=== PATIENT | male | born 1995 | race Caucasian/White ===

== ENCOUNTER 2017-06-29 23:28 | Emergency (ER) | payer OTHER ==
[~2017-06-29] VITALS: Ht 182.9 cm; Wt 78.5 kg
[2017-06-29 23:35] VITALS: BP 152/104
--- NOTE | 2017-06-29 23:49 | NUR ---
PATIENT [facility]IB [facility] BED 3
--- NOTE | 2017-06-29 23:50 | NUR ---
22/M BIB [facility]. PER [facility], PT'S MOTHER CALLED FROM HOME BECAUSE PT HAD USED METH AND WAS EXPERIENCING HALLUCINATIONS. PT DENIES HAVING HALLUCINATIONS OR SI/HI. PT REPORTS HAVING A HEADACHE, PT TOOK TYLENOL WITH NO RELIEF. PT REPORTS USING METH AT 1300. AOX4, AMBULATORY, IRRITABLE. PT DENIES HX, RX. NKA.
[2017-06-30 01:32] VITALS: BP 140/100
--- NOTE | 2017-06-30 01:32 | NUR ---
Patient discharged with v/s stable. Written and verbal after care instructions given and explained. Patient alert, oriented and verbalized understanding of instructions. Ambulatory with steady gait. All questions addressed prior to discharge. ID band removed. Patient advised to follow up with PMD. INSTRUCTED TO TAKE OTC TYLENOL 500MG PRN PER MD. Patient educated on indication of medication including possible reaction and side effects. Opportunity to ask questions provided and answered.
== END 2017-06-30 01:32 | disposition home or self-care (01) ==
LOC: MED 23:28
DX: F14.10 Cocaine abuse, uncomplicated (principal); R44.1 Visual hallucinations; R51 Headache; F17.210 Nicotine dependence, cigarettes, uncomplicated
CPT/HCPCS: 99283

== ENCOUNTER 2017-07-10 22:13 | Emergency (ER) | payer OTHER ==
[~2017-07-10] VITALS: Ht 182.9 cm; Wt 76.2 kg
[2017-07-10 22:15] VITALS: BP 139/92
== END 2017-07-11 00:41 | disposition left against medical advice (07) ==
LOC: MED 22:13
DX: R51 Headache (principal); Z53.21 Procedure and treatment not carried out due to patient leaving prior to being seen by health care provider

== ENCOUNTER 2017-09-23 21:56 | Inpatient (IN) | payer OTHER ==
[~2017-09-23] VITALS: Ht 182.9 cm; Wt 79.8 kg
[2017-09-23 22:00] VITALS: BP 109/90
[2017-09-23] MEDS ORDERED: ASEN5TAB6 SL (22:06)
--- NOTE | 2017-09-23 22:10 | NUR ---
PT CAME IN TO WITH C/O SUICIDE IDEATION. PT STATED THAT HE HEARS VOICES AND BLACKED OUT. HE FOUND HIMSELF RUNNING INTO TRAFFIC. PT HAS A HX OF SCHIZOPHRENIA, DEPRESSION, ANIETY AND BIPOLAR. KNA. SKIN IS PINK/WARM/DRY; AAOX4 WITH EVEN AND STEADY GAIT; PATIENT STATES PAIN OF 0/10 AT THIS TIME; VSS; PATIENT POSITIONED FOR COMFORT; HOB ELEVATED; BEDRAILS UP X2; BED DOWN. ER MADE AWARE OF PT STATUS. Addendum: 09/24/17 at 0049 by [email or web address] PT CAME IN TO WITH C/O SUICIDE IDEATION. PT STATED THAT HE HEARS VOICES AND BLACKED OUT. HE FOUND HIMSELF RUNNING INTO TRAFFIC. PT HAS A HX OF SCHIZOPHRENIA, DEPRESSION, ANIETY AND BIPOLAR. KNA. SKIN IS PINK/WARM/DRY; AAOX4 WITH EVEN AND STEADY GAIT; PATIENT STATES PAIN OF 0/10 AT THIS TIME; VSS; PATIENT POSITIONED FOR COMFORT; HOB ELEVATED; BEDRAILS UP X2; BED DOWN. ER MADE AWARE OF PT STATUS.
--- NOTE | 2017-09-23 22:10 | NUR ---
seizure precautions implemented, pt tolerated well.
--- NOTE | 2017-09-23 22:10 | NUR ---
Pt ambulated to bed 3 with vss. States intent to harm self by walking into traffic. Suicidal precautions in place.
[2017-09-23 22:33] LABS: BASOPHILS % (AUTO) 0.7 % (0.0-2.0); EOSINOPHILS # (AUTO) 0.2 K/uL (0-0.4); EOSINOPHILS % (AUTO) 3.5 % (0.0-4.0); HEMATOCRIT 42.7 % (36-52); HEMOGLOBIN 13.9 g/dL (12.0-18.0); LYMPHOCYTES % (AUTO) 39.2 % (20.5-51.1); MEAN CORPUSCULAR HEMOGLOBIN 27 pg (27-31); MEAN CORPUSCULAR HGB CONC 33 g/dL (33-37); MEAN CORPUSCULAR VOLUME 81.5 fL (80-94); MONOCYTES # (AUTO) 0.2 K/uL (0.8-1.0); MONOCYTES % (AUTO) 4.2 % (1.7-9.3); NEUTROPHILS # (AUTO) 2.7 K/uL (1.8-7.7); NEUTROPHILS % (AUTO) 52.4 % (42.2-75.2); PLATELET COUNT (AUTO) 275 K/uL (140-450); RED BLOOD CELL COUNT(AUTO) 5.24 MIL/uL (4.20-6.10); RED CELL DISTRIBUTION WIDTH 15.2 % (11.6-13.7); WHITE BLOOD COUNT (AUTO) 5.2 K/uL (4.8-10.8)
[2017-09-23 23:13] LABS: ANION GAP 11.9 (8-16); CARBON DIOXIDE 29.7 mmol/L (21-32); CHLORIDE 102 mmol/L (98-107); CREATININE 1.1 mg/dL (0.7-1.3); GFR ARICAN-AMERICAN 106 mL/min (>90); GLUCOSE 120 mg/dL (74-106); POTASSIUM 3.6 mmol/L (3.5-5.1); SODIUM SERUM 140 mmol/L (136-145); UREA NITROGEN, BLOOD 15 mg/dL (7-18)
[2017-09-23 23:23] LABS: ACETAMINOPHEN < 0.5 ug/ml (10-30); ALBUMIN 4.4 g/dL (3.4-5.0); ASPARTATE AMINOTRANSFERASE 45 U/L (15-37); SALICYLATE < 2.8 mg/dL (2.8-20.0); TOTAL BILIRUBIN 0.4 mg/dL (0.0-1.0)
[2017-09-23 23:33] LABS: APPEARANCE,URINE CLEAR (CLEAR); BILIRUBIN,URINE NEGATIVE (NEGATIVE); BLOOD, URINE NEGATIVE (NEGATIVE); COLOR,URINE YELLOW (YELLOW); LEUKOCYTE ESTERASE ,URINE 1+ (NEGATIVE); NITRITE, URINE NEGATIVE (NEGATIVE); UGLUCOSE NEGATIVE (NEGATIVE)
[2017-09-23 23:43] LABS: BARBITURATE, URINE NEG. ng/ml (NEG <=200); BENZODIAZEPINE, URINE NEG. ng/mL (NEG <=200); CANNABINOID, URINE NEG. ng/mL (NEG <=50); COCAINE, URINE NEG. ng/mL (NEG <=300); OPIATE, URINE NEG. ng/mL (NEG <=2000); PHENCYCLIDINE SCREEN,URINE NEG. ng/mL (NEG <=25)
[2017-09-23 23:44] LABS: RBC,URINE 0-5 (RARE) /HPF (0-5); WBC,URINE 16-25 (MOD) /HPF (0-5)
[2017-09-23] MEDS ORDERED: cefTRIAXone 1,000 MG in LIDOCAINE MPF 1% - 5 mL VIAL 2.1 ML IM ONE (23:45)
--- NOTE | 2017-09-24 00:05 | NUR ---
JOY SALDAÑA CALLED AT THIS TIME REQUESTING EVALUATION FOR 7470 HOLD
--- NOTE | 2017-09-24 00:05 | NUR ---
PT STATED THAT HE DOES NOT WANT TO HURT HIMSELF RIGHT NOW. HE STATED THAT HE HAS TRIED TO HURT HIMSELF IN THE PAST BY CUTTING HIMSELF/FOREARM, AND TAKING TOO MANY PILLS TRYING TO OD ON THEM. PT STATED HE DOES DRINK ALCOHOL, SMAKE AND MARAJAUNA. PT ALSO STATED THAT HE HAS BEEN OFF HIS MEDS FOR 3 DAYS AND HE NORMALLY HEARS VOICES. PT VITALS STABLE AND IS RESTING IN BED.
--- NOTE | 2017-09-24 00:53 | NUR ---
PT IS RESTING IN BED. JUICE WAS GIVEN TO HIM BY REQUEST. VITALS STABLE
--- NOTE | 2017-09-24 01:14 | NUR ---
pt sleeping vitals stable.
--- NOTE | 2017-09-24 02:18 | NUR ---
[place] [employer] at bedside
--- NOTE | 2017-09-24 02:18 | NUR ---
PER [place] PD. PUT PT ON A 5150 HOLD. 5150 HOLD HAS BEEN INITIATED.
--- NOTE | 2017-09-24 02:37 | NUR ---
PT IS SLEEPING IN BED, VITALS STABLE
--- NOTE | 2017-09-24 03:03 | NUR ---
SPOKE TO CARL FROM [facility] FOR PLACEMENT. FAXED PT CHART TO BEING PLACEMENT PROCESS AT THIS TIME
--- NOTE | 2017-09-24 03:34 | NUR ---
PT IS SLEEPING IN BED. VITALS STABLE
--- NOTE | 2017-09-24 04:35 | NUR ---
PT IS RESTING IN BED, VITALS STABLE
--- NOTE | 2017-09-24 04:59 | NUR ---
SPOKE W/ VETERINARY TECHNICIAN INSTRUCTOR, GENA, INFORMED HIM THAT WE DID NOT HAVE A SITTER OR AN EMT. I WAS INFORMED THAT A SITTER WAS NOT AVAILABLE IN THE HOSPITAL.
--- NOTE | 2017-09-24 05:16 | NUR ---
SPOKE TO CARL FROM [facility]; NO PLACEMENT AVAILABLE AT THIS TIME. MADE AWARE
--- NOTE | 2017-09-24 05:18 | NUR ---
DR BOO REQUESTING THAT THE PT BE ADMITTED TO THE HOSPITAL AT THIS TIME. PER LETA FROM ADMITTING, PT TO BE ADMITTED TO [facility] SE[facility] PROPERTY MANAGER.
--- NOTE | 2017-09-24 05:31 | NUR ---
SPOKE TO ROSALIA FROM [facility], WAITING FOR CALL BACK FROM BUSINESS REPORTING DEVELOPER
--- NOTE | 2017-09-24 05:35 | NUR ---
pt sleeping in bed. vitals stable.
--- NOTE | 2017-09-24 05:38 | NUR ---
CALL BACK FROM [facility], PT TO BE ADMITTED UNDER DR HAM
--- NOTE | 2017-09-24 06:35 | NUR ---
pt sleeping in bed, vitals stable
--- NOTE | 2017-09-24 06:50 | NUR ---
Pt report given to [facility]. Transfer of care at this time. pt vitals stable.
--- NOTE | 2017-09-24 06:58 | NUR ---
[facility] aware pateint to be admitted. will continue to look for placement, will endorse to morning shift. no updates from contacted facilties at this time.
[2017-09-24 07:00] VITALS: BP 118/68
--- NOTE | 2017-09-24 07:00 | NUR ---
Admited to med surg. Will go to room 121 A. Belongings list completed. Report to THOMAS PEÑA.
--- NOTE | 2017-09-24 07:00 | NUR ---
RECEIVED PT FROM ER VIA WHEELCHAIR DX SUICIDAL IDEATION 5150 PT AAOX2 AMBULATORY NOT IV ACCESS PT IS ORIENTED TO THE FLOOR , SITTER AT BED SIDE PT SEEM CALM GETTING TO SLEEP , VITALS SIGNS TAKEN TEMP 97.8 PULSE 65 RESP 17 BP 118/68 02 SAT 97% , MRSA NARES PROTOCOL TAKEN . PT IS ENDORSED TO WILMAN PEÑA CON CONTINUITY OF CARE
--- NOTE | 2017-09-24 07:00 | NUR ---
RECEIVED REPORT FROM NIGHTSHIFT NURSE AT BEDSIDE. PATIENT HAS 1:1 SITTER. PATIENT IS DROWSY AT THIS TIME BUT IS ALERT AND ORIENTED X4. NO DISTRESS NOTED. NO PAIN NOTED. PATIENT IS LAYING IN LEFT LATERAL POSITION. NO IV ACCESS NOTED. ID BANDS ON PATIENT. UPDATED BOARD IN PATIENT'S ROOM. WILL CONTINUE TO MONITOR PATIENT.
--- NOTE | 2017-09-24 10:28 | NUR ---
PATIENT HAS BEEN SCREENED AND CATEGORIZED LOW NUTRITION RISK. PATIENT WILL BE SEEN WITHIN 7 DAYS OF ADMISSION. 09/30/[address]
--- NOTE | 2017-09-24 10:31 | NUR ---
PATIENT RESTING AT THIS TIME IN RIGHT LATERAL POSITION. PATIENT HAS 1:1 SITTER. WILL CONTINUE TO MONITOR PATIENT.
--- NOTE | 2017-09-24 11:02 | NUR ---
Packet has been faxed to Emily at [facility] for placement. Packet has been faxed to Parvin at [facility] for placement.
--- NOTE | 2017-09-24 11:22 | NUR ---
PATIENT RESTING AT THIS TIME. NO DISTRESS NOTED. WILL CONTINUE TO MONITOR PATIENT.
--- NOTE | 2017-09-24 13:20 | NUR ---
PATIENT ASLEEP AT THIS TIME. 1:1 SITTER AT BEDSIDE. WILL CONTINUE TO MONITOR PATIENT.
--- NOTE | 2017-09-24 15:50 | NUR ---
PATIENT IS ASLEEP AT THIS TIME. NO DISTRESS NOTED.
[2017-09-24 16:00] VITALS: BP 129/76
--- NOTE | 2017-09-24 16:05 | NUR ---
clinical review faxed to [facility] at [phone]
[2017-09-24] MEDS: ACETAMINOPHEN 325 MG TAB PO PRN (17:48)
[2017-09-24 17:55] LABS: APPEARANCE,URINE CLEAR (CLEAR); BILIRUBIN,URINE NEGATIVE (NEGATIVE); BLOOD, URINE NEGATIVE (NEGATIVE); COLOR,URINE YELLOW (YELLOW); LEUKOCYTE ESTERASE ,URINE NEGATIVE (NEGATIVE); NITRITE, URINE NEGATIVE (NEGATIVE); UGLUCOSE NEGATIVE (NEGATIVE)
--- NOTE | 2017-09-24 18:59 | NUR ---
PATIENT RESTING IN BED. NO DISTRESS NOTED. WILL CONTINUE TO MONITOR PATIENT.
--- NOTE | 2017-09-24 19:04 | NUR ---
GAVE REPORT TO NIGHTSHIFT NURSE AT BEDSIDE. PATIENT HAS 1:1 SITTER. PATIENT IN STABLE CONDITION.
--- NOTE | 2017-09-24 19:10 | NUR ---
RECEIVED PATIENT ASLEEP ON BED WITH SITTER IN CONSTANT CLOSE OBSERVATION FOR SAFETY. SUICIDAL PRECAUTION IMPLEMENTED. BED IN LOW POSITION. WILL CONTINUE TO MONITOR.
[2017-09-24 20:00] VITALS: BP 124/71
[2017-09-24] MEDS: CIPROFLOXACIN 250 MG TAB PO SCH (21:00)
--- NOTE | 2017-09-24 21:00 | NUR ---
SEEN PATIENT ASLEEP ON BED. MEDICATION GIVEN TOLERATED WELL. 1:1 SITTER FOR CLOSE CONSTANT OBSERVATION. NO SUICIDAL IDEATION NOTED AT THIS TIME. SUICIDAL PRECAUTION APPLIED. WILL CONTINUE TO MONITOR.
--- NOTE | 2017-09-25 01:07 | NUR ---
Notified charge nurse Analisa PEÑA , At this time there are no vacancy at any of the facilities , will continue to make calls for placement .
--- NOTE | 2017-09-25 01:10 | NUR ---
CHECKED PATIENT ASLEEP COMFORTABLY ON BED. CALL LIGHT WITHIN REACH. WILL CONTINUE TO MONITOR. Addendum: 09/25/17 at 0408 by Ar Belle RN THIS NOTE NOT INTENDED FOR THIS PATIENT.
--- NOTE | 2017-09-25 01:20 | NUR ---
1:1 SITTER FOR CLOSE CONSTANT OBSERVATION. CHECKED PATIENT ASLEEP. SUICIDAL PRECAUTION APPLIED. WILL CONTINUE TO MONITOR
--- NOTE | 2017-09-25 04:10 | NUR ---
SEEN PATIENT ASLEEP. 1:1 SITTER FOR CLOSE OBSERVATION. NO SUICIDAL THOUGHT NOTED AT THIS TIME. SUICIDAL PRECAUTION APPLIED. WILL CONTINUE TO MONITOR.
[2017-09-25 06:00] VITALS: BP 116/68
--- NOTE | 2017-09-25 06:24 | NUR ---
No placement was found at any of the designated facilities , will endorse to AM shift to continue to find placement.
--- NOTE | 2017-09-25 07:15 | NUR ---
ENDORSEMENT GIVEN AT BEDSIDE TO AM SHIFT NURSE FOR CONTINUITY OF CARE. PATIENT IN STABLE CONDITION.
--- NOTE | 2017-09-25 07:16 | NUR ---
RECEIVED REPORT FROM PM NURSE AT THE BEDSIDE. PER PM NURSE, PT SLEEPING. COOPERATIVE AND CALM.VS NOTED BP 105/65, T 97.8, RR 18, HR 64, O2 99% ON RA. PT ASKING FOR BREAKFAST. INFORMED PT THAT BREAKFAST TIME IS AROUND 0730, WILL BE SOON HERE. PT QUIET AND WENT BACK TO SLEEP. WILL CONTINUE TO MONITOR PT.
[2017-09-25 08:00] VITALS: BP 105/65
--- NOTE | 2017-09-25 09:00 | NUR ---
PT ATE HIS BREAKFAST. ATE 100% . ASKED FOR WARM BLANKET. PT WAS CALM AND COOPERATIVE. PT USED RESTROOM AND WENT BACK TO SLEEP. NO SIGN OF DISTRESS. WILL CONTINUE TO MONITOR PT.
[2017-09-25] MEDS: CIPROFLOXACIN 250 MG TAB PO SCH ×2 (09:14→20:53)
--- NOTE | 2017-09-25 09:41 | NUR ---
GOT CALLED [facility] PSYCH FACILITY REGARDING CONSULT . WILL SEND VEHICLE WINDOW TINTER TO SEE THE PT. WILL CONTINUE TO MONITOR PT.
--- NOTE | 2017-09-25 11:17 | NUR ---
DR GIBSON CAME AND SAW PT AT BEDSIDE. UPDATED ON PT. DR TALKED TO PT. WILL CONTINUE TO MONITOR PT.
--- NOTE | 2017-09-25 12:14 | NUR ---
PT AWAKE AND EATING LUNCH. ATE 100%. NO SIGN OF DISTRESS. PT WENT BACK TO SLEEP. WILL CONTINUE TO MONITOR PT.
--- NOTE | 2017-09-25 14:30 | NUR ---
CHECKED ON PT. SLEEPING IN HIS BED. WILL KEEP MONITORING THE PT.
--- NOTE | 2017-09-25 14:33 | NUR ---
CM NOTE REVIEW FAXED TO [facility] [phone] MANA # [phone]
[2017-09-25 16:00] VITALS: BP 123/80
--- NOTE | 2017-09-25 16:15 | NUR ---
CHECKED ON PT. TOOK HIS VS. PT CHIDI AND COOPERATIVE. PT ASKING WHEN HE WILL BE TRANSFERRED.INFORMED THAT WE ARE LOOKING FOR THE PLACEMENT IN PSYCH FACILITY . PT WANTED TO CALL TO HIS MOTHER. WILL FIND NUMBER SO THAT HE CAN TALK TO HIS MOTHER. WILL CONTINUE TO MONITOR PT.
--- NOTE | 2017-09-25 17:19 | NUR ---
PT SITTING ON HIS BED AND TALKING.PT STATES THAT HE HAS BEEN SEEING THINGS SINCE 11 Y/O. PT STATES THAT HE HAS BIPOLAR DISORDER, SCHIZOPHRENIA AND BIPOLAR DISORDER. PT WANTED TO GET THE NUMBER FROM HIS PHONE, GAVE HIS PHONE. COPIED THE NUMBER FROM MOBILE TO PAPER, STATES WILL TEXT TO HIS GIRLFRIEND. HE GAVE BACK PHONE, TURNED IT OFF AND GAVE BACK TO THE SECURITY . PT SLEEPING ON HIS BED NOW. PT WANTED HIS WALLET SO THAT HE CAN BUY FOOD FROM [place]. INFORMED THAT TRAY WILL BE PROVIDED AROUND 1730. ALSO INFORMED THAT [place] CLOSES AT 1330 , PT STATES TO WAIT FOR THE TRAY TO COME. PT WAS TALKING BEING CALM AND WAS COOPERATIVE . WILL CONTINUE TO MONITOR PT.
--- NOTE | 2017-09-25 18:20 | NUR ---
PT HAS PSYCH CONSULT DONE TODAY. PT STATES TO ADMIT VOLUNTARILY TO PSYCH FACILITY VOLUNTARILY, MIGHT BE TAKEN OFF FROM HOLD PER PSYCH DOCTOR. PT OFFERED DINNER TRAY. WILL CONTINUE TO MONITOR PT.
--- NOTE | 2017-09-25 19:20 | NUR ---
ENDORSED PT TO PM NURSE. PT IN STABLE CONDITION.
--- NOTE | 2017-09-25 19:21 | NUR ---
RECEIVED PATIENT ASLEEP ON BED WITH 1:1 SITTER IN CLOSE CONSTANT OBSERVATION FOR SAFETY. SUICIDAL PRECAUTION APPLIED. BED IN LOW LOCKED POSITION. DISCUSS PLAN OF CARE AND VERBALIZED UNDERSTANDING. WILL CONTINUE TO MONITOR.
[2017-09-25] MEDS: ACETAMINOPHEN 325 MG TAB PO PRN (19:51)
--- NOTE | 2017-09-25 21:00 | NUR ---
MEDICATION GIVEN TOLERATED WELL. 1:1 SITTER FOR CLOSE CONSTANT OBSERVATION. SUICIDAL PRECAUTION APPLIED. NO SUICIDAL THOUGHTS/ IDEATION NOTED AT THIS TIME. BED IN LOW LOCKED POSITION. WILL CONTINUE TO MONITOR.
[2017-09-25 22:00] VITALS: BP 109/59
--- NOTE | 2017-09-26 00:05 | NUR ---
CHECKED PATIENT ASLEEP ON BED WITH 1:1 SITTER CLOSE CONSTANT OBSERVATION. SUICIDAL PRECAUTION APPLIED. BED IN LOW LOCKED POSITION. WILL CONTINUE TO MONITOR.
--- NOTE | 2017-09-26 03:36 | NUR ---
PATIENT ASLEEP WITH SITTER IN CLOSE CONSTANT OBSERVATION. SUICIDAL PRECAUTION APPLIED. BED IN LOW LOCKED POSITION. WILL CONTINUE TO MONITOR.
[2017-09-26 06:00] VITALS: BP 103/54
--- NOTE | 2017-09-26 07:10 | NUR ---
RECEIVED PATIENT REPORT AT BED SIDE. PATIENT AWAKE, ALERT, AND ORIENTED. NO S/S OF DISTRESS. PATIENT CALM AND COOPERATIVE AT THIS TIME. WILL CONTINUE TO MONITOR
--- NOTE | 2017-09-26 07:20 | NUR ---
ENDORSEMENT GIVEN AT BEDSIDE TO AM SHIFT NURSE FOR CONTINUITY OF CARE. PATIENT IN STABLE CONDITION.
[2017-09-26 07:33] VITALS: BP 112/66
[2017-09-26] MEDS: CIPROFLOXACIN 250 MG TAB PO SCH (09:20)
--- NOTE | 2017-09-26 10:38 | NUR ---
PATIENT ASLEEP IN BED. NO S/S OF DISTRESS NOTED
--- NOTE | 2017-09-26 10:45 | NUR ---
[facility] aware patient is still in unit. will continue to look for placement throughout shift. will update unit when new information has been received.
--- NOTE | 2017-09-26 11:34 | NUR ---
PER DOCTOR TRINY (PSYCH), PT IS NOT ON 5150 HOLD BECAUSE PT IS WILLING TO VOLUNTARILY ADMIT HIMSELF TO INPT PSYCH FOR SI, BUT PT MUST BE TRANSFERRED INPT TO INPT DUE TO CONTINUED SI. [facility] CALLED BY PRIMARY NURSE AND MADE AWARE OF CURRENT STATUS.
--- NOTE | 2017-09-26 11:34 | NUR ---
SPOKE TO CARL FROM [facility] AND INFORMED HIM THAT PATIENT IS REQUESTING TO BE TRANSFERRED TO A PSYCH FACILITY AND DOES NOT HAVE TO BE IN A LOCKED FACILITY. PER CARL THEY ARE STILL WAITING FOR AVAILABILITY
[2017-09-26 17:12] VITALS: BP 109/62
--- NOTE | 2017-09-26 18:13 | NUR ---
[facility] aware patient is no longer being written for a 5150 but meets criteria for placement for psych according to MD notes. will endorse to night coordinator to continue looking for placement for voluntary admission to psych facility.
--- NOTE | 2017-09-26 18:47 | NUR ---
PATIENT AWAKE IN BED, CHATTING WITH HIS ROOMMATE. NO S/S OF DISTRESS NOTED
--- NOTE | 2017-09-26 19:21 | NUR ---
PATIENT REPORT GIVEN AT BEDSIDE. PATIENT ENDORSED IN STABLE CONDITION
--- NOTE | 2017-09-26 19:22 | NUR ---
Patient's Plan of Care was discussed and reviewed with UNIVERSITY EXTENSION SPECIALIST: NEWTON RIVERO
--- NOTE | 2017-09-26 19:22 | NUR ---
RECD. RESTING IN BED, AWAKE, A/OX4, RESPIRATION EVEN AND UNLABORED. NO IV LINE, REFUSED TO HAVE A NEW ONE INSERTED. WHEN ASKED IF HE HAS THOUGHTS OF HURTING SELF STATED YES. ADMITTED TO STILL HAVING HALLUCINATION, SEEING A BLACK LADY BEFORE DINNER. PLAN OF CARE FOR THE SHIFT DISCUSSED, AGREED. DENIES PAIN 0/10.
[2017-09-26] MEDS: LORazepam 1 MG TAB PO PRN (20:53)
--- NOTE | 2017-09-26 20:55 | NUR ---
WITH ANXIETY, MEDICATED WITH ATIVAN 1 MG. PO.
--- NOTE | 2017-09-26 21:30 | NUR ---
WANTS TO SLEEP WELL TONIGHT. REQUESTING FOR SEROQUEL 100 MG. STATED HE TAKES IT AT HOME. WILL INFORMED
--- NOTE | 2017-09-26 23:22 | NUR ---
UNABLE TO SLEEP, MEDICATED WITH SEROQUEL 100 MG. PO.
[2017-09-26] MEDS ORDERED: QUEtiapine FUMARATE 100 MG TAB PO SCH (23:30)
[2017-09-27] VITALS: BP 124/79
--- NOTE | 2017-09-27 00:20 | NUR ---
SLEEPING COMFORTABLY IN BED.
--- NOTE | 2017-09-27 01:55 | NUR ---
GET OUT OF BED, WENT TO THE WINDOWS, SEEMS WANT TO OPEN IT. ORIENTED TO LOCATION OF BR. BACK TO BED AFTER VOIDING AND SLEEP AGAIN.
--- NOTE | 2017-09-27 06:50 | NUR ---
STILL SLEEPING COMFORTABLY. CONDITION REMAIN STABLE. WILL ENDORSE TO AM NURSE FOR CONTINUITY OF CARE.
--- NOTE | 2017-09-27 07:10 | NUR ---
RECEIVED PATIENT REPORT AT BED SIDE. PATIENT AWAKE, ALERT, AND ORIENTED. NO S/S OF DISTRESS. PATIENT CALM AND COOPERATIVE AT THIS TIME. WILL CONTINUE TO MONITOR
--- NOTE | 2017-09-27 07:10 | NUR ---
ENDORSED TO AM NURSE FOR CONTINUITY OF CARE.
[2017-09-27 08:00] VITALS: BP 122/80
--- NOTE | 2017-09-27 11:09 | NUR ---
PATIENT ASLEEP IN BED. NO S/S OF DISTRESS NOTED
--- NOTE | 2017-09-27 12:10 | NUR ---
No Bed availability [facility] facilities: [facility] s[facility]w [facility] s/w Ángela Ritter s/w Sonido Mcarthur s/w [facility] s/w Lisbeth Monk s/w Lisbeth
[2017-09-27 16:00] VITALS: BP 132/81
--- NOTE | 2017-09-27 16:45 | NUR ---
PATIENT AWAKE TALKING WITH HIS ROOM MATE. NO S/S OF DISTRESS NOTED
--- NOTE | 2017-09-27 19:15 | NUR ---
PATIENT REPORT GIVEN TO WINE STEWARD NURSE . PATIENT ENDORSED IN STABLE CONDITION
--- NOTE | 2017-09-27 19:16 | NUR ---
RECD. RESTING IN BED, AWAKE, A/OX4. RESPIRATION EVEN AND UNLABORED. WHEN ASKED IF HE STILL HAVE HALLUCINATIONS, STATE SOMETIMES BUT DENIES THOUGHTS OF HURTING HIMSELF. PLAN OF CARE FOR THE SHIFT DISCUSSED. VERBALIZED UNDERSTANDING. DENIES PAIN 0/10.
--- NOTE | 2017-09-27 20:45 | NUR ---
AMBULATED TO TO VOID, BACK TO BED AFTER VOIDING.
[2017-09-27] MEDS: QUEtiapine FUMARATE 100 MG TAB PO SCH (21:18)
--- NOTE | 2017-09-27 21:18 | NUR ---
DUE PO MEDICATION GIVEN.
--- NOTE | 2017-09-27 21:30 | NUR ---
CONVERSING WITH ROOM MATE.
--- NOTE | 2017-09-27 22:00 | NUR ---
SLEEPING COMFORTABLY IN BED.
[2017-09-28] VITALS: BP 140/87
--- NOTE | 2017-09-28 04:00 | NUR ---
NO COMPLAINT OF PAIN. VS STABLE.
--- NOTE | 2017-09-28 07:00 | NUR ---
ASSUMED CONTINUITY OF CARE. NO SIGNS AND SYMPTOMS OF ACUTE DISTRESS NOTED. SLEEPING WELL AT THIS TIME. KEEP COMFORTABLE ON BED. KEEP FREE FROM INJURY.
--- NOTE | 2017-09-28 07:00 | NUR ---
STILL SLEEPING IN BED, ALL NEEDS ATTENDED. NO SUICIDAL BEHAVIOR NOTED DURING SHIFT. ENDORSED TO AM NURSE FOR CONTINUITY OF CARE.
--- NOTE | 2017-09-28 07:40 | NUR ---
SERVED BREAKFAST TRAY AT THIS TIME. CALM, QUIET AND COOPERATIVE. NO SUICIDAL THOUGHTS OBSERVED. KEEP SURROUNDINGS SAFE.
[2017-09-28 08:00] VITALS: BP 126/71
--- NOTE | 2017-09-28 08:40 | NUR ---
WENT TO BATHROOM WITHOUT ASSISTANCE. TOLERATED WELL. NO C/O PAIN. NO SOB, NOTED.
--- NOTE | 2017-09-28 11:51 | NUR ---
STAFF FROM [facility] IN [place] CALLED AND WAS TOLD THAT PT. GAVE THEM A CALL AND SAID THAT PT. STILL SUICIDAL. PT. CALM, QUIET AND COOPERATIVE AT THIS TIME. NO SUICIDAL THOUGHTS OBSERVED. KEEP SURROUNDINGS SAFE. CLOSELY MONITORED 1:1 FOR SUICIDAL PREVENTION. INFORMED CHARGE NURSE MELISSA RAMIREZ.
[2017-09-28 12:00] VITALS: BP 119/72
--- NOTE | 2017-09-28 13:10 | NUR ---
RD BACA CAME FOR PT. PSYCH RE-EVAL. PT. CALM AND COOPERATIVE.
--- NOTE | 2017-09-28 13:14 | NUR ---
There are no updates from faxed/contacted facilities. Will continue to follow up.
--- NOTE | 2017-09-28 13:18 | NUR ---
RD BACA PUT PT. ON 5150 HOLD AT THIS TIME. CLOSELY MONITORED PT. 1:1 FOR SUICIDAL PREVENTION. INFORMED CHARGE NURSE MELISSA RAMIREZ.
--- NOTE | 2017-09-28 14:13 | NUR ---
CM NOTE INITIAL REVIEW FAXED TO [facility] [phone] MANA # [phone]
--- NOTE | 2017-09-28 17:01 | NUR ---
DR. ALMODOVAR CAME AND SPOKE TO PT. AT BEDSIDE. PT. CALM AND COOPERATIVE.
--- NOTE | 2017-09-28 18:52 | NUR ---
CALLED [facility] AT AND SPOKE TO ESTHER -CUTTER MACHINE TENDER, VERIFIED IF THERE'S BED AVAILABLE TO PT.. PER ESTHER -CUTTER MACHINE TENDER NO BED AVAILABLE AT THIS TIME. INFORMED CHARGE NURSE MELISSA RAMIREZ.
--- NOTE | 2017-09-28 19:17 | NUR ---
BEDSIDE REPORT GIVEN TO PO FLORES -CASEY FOR PT. CLOSE MONITORING FOR SUICIDAL PREVENTION. IN STABLE CONDITION. ALSO ENDORSED ABOUT [facility] BED UNAVAILABILITY OF THIS TIME, PER ESTHER WET POUR MIXER.
--- NOTE | 2017-09-28 19:17 | NUR ---
RECEIVED ENDORSEMENT FROM OSCAR GOLDSMITH AT BEDSIDE FOR TRANSFER OF CARE. PT IN STABLE CONDITION V/S FOLLOWS T 98.2 P 86 R 18 B/P 136/90 02 98%. PT LYING IN BED, AWAKE AND ALERT, SIDE RAILS UP X2, PT MOOD QUIET AND COOPERATIVE. HE JENNIE ANY VISUAL HALLUCINATIONS AT THIS TIME, AND WHEN ASKED ORIENTATION QUESTIONS SUCH DO YOU KNOW WHERE YOU ARE? PT SMILED AND SAID YES BUT REFUSED TO ANSWER QUESTION. PT ALSO SAID THAT HE HAS NO THOUGHTS OF SUICIDE AT THIS TIME. SITTER AT BEDSIDE.
--- NOTE | 2017-09-28 20:01 | NUR ---
PT SPEAKING CALMLY WITH GIRLFRIEND ON THE PHONE. ABOUT POSSIBLE FUTURE PLANS AND THIER CURRENT SITUATION.
[2017-09-28] MEDS: QUEtiapine FUMARATE 100 MG TAB PO SCH (20:22)
--- NOTE | 2017-09-28 20:26 | NUR ---
PT TOOK THE ORDERED SEROQUEL 100MG SCHEDULED AT 2100 WITH NO ISSUE. PT NOW RESTING QUIETLY IN BED, EVEN RESPIRATIONS, NO S/S OF PAIN OR DISTRESS NOTED.
--- NOTE | 2017-09-28 21:32 | NUR ---
PT SPOKE WITH GIRLFRIEND BRIEFLY BEFORE SETTLING DOWN IN BED TO REST AGAIN.
--- NOTE | 2017-09-28 23:14 | NUR ---
PT ASLEEP IN LOW BED NO S/S OF PAIN OR DISTRESS NOTED.
--- NOTE | 2017-09-28 23:36 | NUR ---
PT OUT OF BED AND AMBULATED TO TOILET TO VOID. PT THEN WASHED HIS HANDS HAD A SIP OF WATER AND SETTLED BACK TO BED TO SLEEP. NO S/S OF PAIN OR DISTRESS, NO SUICIDAL THOUGHTS SHARED. PT CALM AND COOPERATIVE WHILE V/S WERE TAKEN RESULTS FOLLOWS T 97.6 P 69 R 18 B/P 112/57 02 99% WITH R/A.
[2017-09-29] VITALS: BP 112/57
--- NOTE | 2017-09-29 00:57 | NUR ---
PT ASLEEP ON LOW BED, SIDE RAILS UP X 2 , NO S/S OF PAIN OR DISTRESS NOTED. 1:1 SITTER AT BEDSIDE, PT MONITORED FOR SAFETY.
--- NOTE | 2017-09-29 02:37 | NUR ---
PT SOUND ASLEEP IN BED NO S/S OF PAIN OR DISTRESS NOTED BED LOW SIDE RAILS UP AND SITTER AWAKE AT BEDSIDE.
--- NOTE | 2017-09-29 03:51 | NUR ---
PT WOKE UP BRIEFLY, DRANK SOME WATER AND LAID BACK IN BED. NO S/S OF PAIN OR DISTRESS NOTED. SITTER AT BEDSIDE
--- NOTE | 2017-09-29 05:29 | NUR ---
PT AWAKE AND SITING UP IN BED, PT SAYS THAT HE IS HUNGRY, BUT THERE IS NO EXTRA SANDWICHES , SO PT GIVEN 2 SMALL JUICE BOXES, HE DRANK THEM AND WENT BACK TO BED
--- NOTE | 2017-09-29 06:08 | NUR ---
No vacancy thru out the whole shift, many calls were made , Will endorsed to am shift to continue to look for placement.
--- NOTE | 2017-09-29 06:22 | NUR ---
PT STILL SLEEPING IN BED AWAITING BREAKFAST IN THE AM. NO S/S OF PAIN OR DISTRESS NOTED. SITTER AT BEDSIDE PT SAFE FROM INJURY, PT HAD NO HALLUCINATIONS OR DELUSIONS THIS SHIFT. PT WAS CALM AND COOPERATIVE.
--- NOTE | 2017-09-29 07:05 | NUR ---
REPORT GIVEN TO BEST RN DAYSHIFT NURSE AT BEDSIDE FOR CONTINUITY OF CARE, PT ASLEEP IN BED NO S/S OF PAIN OR DISCOMFORT NOTED.
--- NOTE | 2017-09-29 07:06 | NUR ---
RECEIVED PT REPORT FROM BILL OF MATERIALS CLERK RN AT BEDSIDE. PT IS SLEEPING, EASILY AROUSED, OX4. PT IS COOPERATIVE AND STATED HE WANTS TO GO HOME, WILL REQUEST FOR PSYCH REEVALUATION. DENIES ANY SUICIDAL THOUGHTS AT THIS TIME, 1:1 SITTER AT BEDSIDE.
[2017-09-29] MEDS: LORazepam 1 MG TAB PO PRN ×2 (07:52→12:15)
--- NOTE | 2017-09-29 07:54 | NUR ---
PT JUST FINISHED BREAKFAST. PT STATED THAT HE WANTS TO GO HOME, MADE HIM AWARE THAT WILL REQUEST FOR PSYCH RE-EVAL. PT LOOKING ANXIOUS, OFFERED ATIVAN, PT AGREED. PT WENT BACK TO BED
[2017-09-29 08:00] VITALS: BP 128/86
--- NOTE | 2017-09-29 08:15 | NUR ---
MADE CHARGE NURSE AWARE THAT PT WANTS TO GO HOME, HOWEVER, PT WAS JUST EVALUATED BY PSYCHOLOGIST LAST NIGHT AND PT MEETS [facility] PER THE PSYCHOLOGIST'S NOTES.
--- NOTE | 2017-09-29 13:00 | NUR ---
RECEIVED CALL FROM [facility], STATED BED MIGHT BE AVAILABLE FOR PT, REQUESTED 8760 FORM. NOTIFIED VETERINARY SURGERY TECHNOLOGIST, FAXED PSYCHOLOGIST'S PROGRESS NOTE AND [phone] FORM.
--- NOTE | 2017-09-29 13:50 | NUR ---
RECEIVED CALL FROM RANI INTAKE STAFF AT [facility], PT REPORT WAS GIVEN. ACCEPTING DR IS DR WEEKS. ROOM NUMBER WILL BE ASSIGNED WHEN PT ARRIVES.
--- NOTE | 2017-09-29 14:54 | NUR ---
CM NOTE PROGRESS NOTE FAXED TO [facility] [phone]. INFORMED [facility] CM MANA THAT PATIENT WAITING FOR INPATIENT PSYCH FACILITY PLACEMENT.
--- NOTE | 2017-09-29 14:55 | NUR ---
CALLED [facility] [place] NOTIFIED ETA.
--- NOTE | 2017-09-29 15:01 | NUR ---
PT DISCHARGED PER MD ORDER, TRANSFERRING TO [facility]. DISCHARGE INSTRUCTION AND MEDICATION TEACHING GIVEN. PT VERBALIZED UNDERSTANDING. CALLED SECURITY TO GET PT'S BELONGINGS. PT SIGNED ALL HIS DISCHARGE PAPER. NO S/S OF DISTRESS NOTED. WAITING FOR [facility].
--- NOTE | 2017-09-29 15:30 | NUR ---
PT WAS PICKED UP BY [facility]. PT IS IN STABLE CONDITION. NO S/S OF ACUTE DISTRESS. PT LEFT WITH ALL HIS BELONGINGS.
== END 2017-09-29 15:30 | disposition designated cancer center or children's hospital (05) | DRG 463 ==
LOC: MED 21:56 → MTU 09-24 05:57
PROVIDERS: ADMIT Internal Medicine Pulmonary Disease; ATTEND Internal Medicine Pulmonary Disease
DX: N39.0 Urinary tract infection, site not specified (principal); R45.851 Suicidal ideations; F25.0 Schizoaffective disorder, bipolar type; F32.9 Major depressive disorder, single episode, unspecified; F41.9 Anxiety disorder, unspecified; F15.90 Other stimulant use, unspecified, uncomplicated; F17.210 Nicotine dependence, cigarettes, uncomplicated; Z59.0 Homelessness; Z88.8 Allergy status to other drugs, medicaments and biological substances
CPT/HCPCS: 36415; 80053; 80305; 81001; 81003; 85025; 87081; 87086; 96372; 99285; G0480; G0482; J0696; J2001